=== PATIENT | male | born 1930 | race Caucasian/White ===

== ENCOUNTER → 2018-01-08 | Outpatient (CLI) | payer MEDICARE, OTHER ==
--- NOTE | 2018-01-08 11:00 | Diagnostic Imaging Report ---
CLINICAL INDICATION: Patient with chronic sinusitis. Phlegm in throat. EXAMINATION: Axial maxillofacial CT scan performed without IV contrast with coronal reformations. COMPARISON: CT scan of the sinuses without contrast dated 03/19/2007. FINDINGS: PARANASAL SINUSES: FRONTAL: Unremarkable. ETHMOID: There is minimal mucosal thickening which has decreased. MAXILLARY: There are two mucous retention cysts or polyps in the right maxillary sinus. The one involving the medial wall measures roughly 1.9 cm in craniocaudal dimension and is grossly stable. The smaller one on the floor of the right maxillary sinus measures roughly 12 mm in craniocaudal dimension and has slightly decreased in size from the prior study where it measured at 16 mm. There is resolution of the previously seen small to moderate-sized air-fluid level on the left and small air-fluid level on the right. There is interval development of small mucus retention cyst or polyps involving the left maxillary sinus. SPHENOID: Unremarkable. OTHER PARANASAL SINUS FINDINGS: None. NASAL SEPTUM: Stable mild rightward nasal septal deviation. 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 VISUALIZED TEMPORAL BONE STRUCTURES: Unremarkable. BONY STRUCTURES: Unremarkable. EXTRACRANIAL SOFT TISSUE/ ORBITS: Unremarkable. IMPRESSION: 1: There is paranasal sinus disease with bilateral maxillary sinuses affected the most (right side more than the left), as described above. 2: Stable mild rightward nasal septal deviation. 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 Dictated by: Dictated on workstation # [id number]
== END ==
LOC: RAD 09:35
PROVIDERS: ATTEND Otolaryngology Otolaryngology/Facial Plastic Surgery
DX: J32.0 Chronic maxillary sinusitis (principal); J32.2 Chronic ethmoidal sinusitis
CPT/HCPCS: 70486

== ENCOUNTER → 2019-06-18 | Outpatient (CLI) | payer MEDICARE, OTHER ==
--- NOTE | 2019-06-18 11:31 | Diagnostic Imaging Report ---
PATIENT HISTORY: ALLERGIC RHINITIS BRONCHITIS. TECHNIQUE: Two views of the chest. COMPARISON: 03/19/2007. FINDINGS: The lung volumes are normal. No focal consolidation is seen. Linear opacities in the lung bases likely represent atelectasis or scarring and appears stable since 2006 No large pleural effusion or pneumothorax is seen. The cardiomediastinal silhouette is normal in size and contour. No acute osseous abnormality is seen. There are degenerative changes throughout the thoracic spine. IMPRESSION: No acute pulmonary abnormality seen. Dictated by: Dictated on workstation # [id number]
== END ==
LOC: RAD 09:03
PROVIDERS: ATTEND Nurse Practitioner Family
DX: J30.9 Allergic rhinitis, unspecified (principal); J40 Bronchitis, not specified as acute or chronic
CPT/HCPCS: 71046

== ENCOUNTER → 2019-06-19 | Outpatient (CLI) | payer MEDICARE, OTHER ==
[~2019-06-19] MED LIST: RT-ALBUTEROL SULF 2.5 MG/3 ML PRE-MIX VIAL INH ONE
== END ==
LOC: RT 12:22
PROVIDERS: ATTEND Nurse Practitioner Family
DX: J30.9 Allergic rhinitis, unspecified (principal); J40 Bronchitis, not specified as acute or chronic
CPT/HCPCS: 94060; 94726; 94729